=== PATIENT | female | born 1990 | race African-American/Black ===

== ENCOUNTER 2016-09-22 16:38 | Emergency (ER) | payer SELFPAY ==
--- NOTE | 2016-09-22 17:04 | ED Physician Chart ---
Chief Complaint/HPI - Patient Information Date Seen:: 09/22/16 Time Seen:: 16:58 Chief Complaint:: white vaginal discharge History of Present Illness:: THIS IS A 25 YO FEMALE WITH A WHITE VAGINAL DISCHARGE FOR SEVERAL DAYS. SHE STATES THAT SHE HAS HAD A YEAST INFECTION IN THE PAST LIKE THIS ONE. THE OVER THE COUNTER TREATMENTS HAVE NOT WORKED. THE PATIENT DENIES ALL OTHER PROBLEMS. Allergies:: Allergies Allergy/AdvReac Type Severity Reaction Status Date / Time No Known Allergies Allergy Verified 09/22/16 16:52 Vitals:: Vital Signs - 8 hr 09/22/16 16:52 Temp 97.5 F HR 81 RR 16 BP 131/82 O2 Sat % 100 Historian:: Patient Review:: Nurse's Note Reviewed Review of Systems - Review of Systems General/Constitutional: No fever, No chills, No weight loss, No weakness, No diaphoresis, No edema, No loss of appetite Skin: No skin lesions, No rash, No bruising Head: No headache, No light-headedness Eyes: No loss of vision, No pain, No diplopia ENT: No earache, No nasal drainage, No sore throat, No tinnitus Neck: No neck pain, No swelling, No thyromegaly, No stiffness, No mass noted Cardio Vascular: No chest pain, No palpitations, No PND, No orthopnea, No edema Pulmonary: No SOB, No cough, No sputum, No wheezing GI: No nausea, No vomiting, No diarrhea, No pain, No melena, No hematochezia, No constipation, No hematemesis G/U: No dysuria, No frequency, No hematuria Auto Cleaner: Vaginal discharge Musculoskeletal: No bone or joint pain, No back pain, No muscle pain Endocrine: No polyuria, No polydipsia Psychiatric: No prior psych history, No depression, No anxiety, No suicidal ideation Hematopoietic: No bruising, No lymphadenopathy Allergic/Immuno: No urticaria, No angioedema Neurological: No syncope, No focal symptoms, No weakness, No paresthesia, No headache, No seizure, No dizziness, No confusion, No vertigo Past Medical History - Past Medical History Obtainable: Yes Past Medical History: No significant medical hx Family History: None Social History: Non Smoker, No Alcohol, No Drug Use Surgical History: Psychiatricy History: None Medication: Reviewed Family Medical History - Family Member Mother History Unknown: Yes Ethnicity: Non- Living Status: Still Living Hx Family Cancer: No Hx Family Coronary Artery Disease: No Hx Family Congestive Heart Failure: No Hx Family Hypertension: Yes Hx Family Stroke: No Hx Family Diabetes: No Hx Family Seizures: No Hx Family Dementia: No Hx Family AIDS: No Hx Family HIV: No Hx Family COPD: No Hx Family Hepatitis: No Hx Family Psychiatric Problems: No Hx Family Tuberculosis: No Physical Exam - Physical Examination General/Constitutional: Awake, Well-developed, well-nourished, Alert, No distress, GCS 15, Non-toxic appearing, Ambulatory Head: Atraumatic Eyes: Lids, conjuctiva normal, PERRL, EOMI Skin: Nl inspection, No rash, No skin lesions, No ecchymosis, Well hydrated, No lymphadenopathy ENMT: External ears, nose nl, Nasal exam nl, Lips, teeth, gums nl Neck: Nontender, Full ROM w/o pain, No JVD, No nuchal rigidity, No bruit, No mass, No stridor Respiratory: Nl effort/Exclusion, Clear to Auscultation, No Wheeze/Rhonchi/Rales Cardio Vascular: RRR, No murmur, gallop, rubs, NL S1 S2 GI: No tenderness/rebounding/guarding, No organomegaly, No hernia, Normal BS's, Nondistended, No mass/bruits, No McBurney tenderness : No CVA tenderness Other comments:: THE PELVIC EXAMINE WAS DEFERRED. THERE IS NO PELVIC TENDERNESS OR DISCOMFORT. Extremities: No tenderness or effusion, Full ROM, normal strength in all extremities, No edema, Normal digits & nails Neuro/Psych: Alert/oriented, DTR's symmetric, Normal sensory exam, Normal motor strength, Judgement/insight normal, Mood normal, Normal gait, No focal deficits Misc: normal gait, Normal back, No paraspinal tenderness Assessment - Assessment General Assessment: FUNGAL VAGINITIS ED Septic Shock - . Is Septic Shock (SBP<90, OR Lactate>4 mmol\L) present?: No - <6hrs of presentation: Vital Signs: Vital Signs - 8 hr // 16:52 Temp 97.5 F HR 81 RR 16 BP 131/82 O2 Sat % 100 Reassessment (Disposition) - Reassessment Reassessment Condition:: Unchanged - Diagnosis Diagnosis:: FUNGAL VAGINITIS - Aftercare/Follow up Instructions Aftercare/Follow-Up Instructions:: Counseled pt regarding lab results/diagnosis & need follow up, Refer to Discharge Instructions, Counseled pt & family regarding lab results/diagnosis & need follow up - Patient Disposition Discharge/Transfer:: Home Condition at Disposition:: Unchanged ED Discharge Plan - Patient Disposition Admit/Discharge/Transfer: PT DISCHARGED HOME Condition at Disposition: Unchanged
== END 2016-09-22 17:05 | disposition home or self-care (01) ==
LOC: ER 16:38
DX: N76.0 Acute vaginitis (principal)
CPT/HCPCS: Z7502

== ENCOUNTER 2017-11-26 08:59 | Emergency (ER) | payer BC, MEDICARE ==
[2017-11-26 10:10] LABS: URINE SOURCE CLEAN C
[2017-11-26 10:13] LABS: URINE BILIRUBIN SMALL (NEGATIVE); URINE BLOOD MODERATE (NEGATIVE); URINE GLUCOSE (UA) NEGATIVE (NEGATIVE); URINE KETONE NEGATIVE (NEGATIVE); URINE LEUKOCYTE ESTERASE MODERATE (NEGATIVE); URINE MICROSCOPIC INDICATED? YES; URINE NITRATE NEGATIVE (NEGATIVE); URINE PROTEIN TRACE mg/dL (NEGATIVE); URINE UROBILINOGEN 0.2 E.U./dL (0.2 - 1.0)
[2017-11-26 10:21] LABS: URINE CLARITY HAZY (CLEAR); URINE COLOR YELLOW
[2017-11-26 10:23] LABS: URINE BACTERIA MODERATE /hpf (NONE SEEN); URINE EPITHELIAL CELLS MODERATE /lpf (FEW)
--- NOTE | 2017-11-26 13:09 | ED Physician Chart ---
ED Chief Complaint/HPI - Patient Information Date Seen:: 11/26/17 Time Seen:: 09:30 Chief Complaint:: vaginal discharge History of Present Illness:: 27 yr old female here with one wk hx of vag d/c greenish with itching dysuria and irritation pt has hx of yeast infections Allergies:: Allergies Allergy/AdvReac Type Severity Reaction Status Date / Time ibuprofen Allergy Verified 11/26/17 09:12 Vitals:: Vital Signs - 8 hr 11/26/17 11/26/17 09:12 11:05 Temp 98.6 F 98.2 F HR 93 84 RR 16 16 BP 150/76 132/72 O2 Sat % 98 99 ED Review of Systems - Review of Systems General/Constitutional: No fever, No chills Skin: No skin lesions Head: No headache Eyes: No loss of vision ENT: No earache Neck: No neck pain GI: No vomiting G/U: Dysuria Meat Slicer: Vaginal discharge Musculoskeletal: No bone or joint pain Endocrine: No polyuria Psychiatric: No suicidal ideation Hematopoietic: No bruising Allergic/Immuno: No urticaria ED Past Medical History - Past Medical History Past Medical History: No significant medical hx Family Medical History - Family Member Mother History Unknown: Yes Ethnicity: Non- Living Status: Still Living Hx Family Cancer: No Hx Family Coronary Artery Disease: No Hx Family Congestive Heart Failure: No Hx Family Hypertension: Yes Hx Family Stroke: No Hx Family Diabetes: No Hx Family Seizures: No Hx Family Dementia: No Hx Family AIDS: No Hx Family HIV: No Hx Family COPD: No Hx Family Hepatitis: No Hx Family Psychiatric Problems: No Hx Family Tuberculosis: No ED Physical Exam - Physical Examination General/Constitutional: Awake, Well-developed, well-nourished, Alert, No distress, GCS 15, Non-toxic appearing, Ambulatory Head: Atraumatic Eyes: Lids, conjuctiva normal, PERRL, EOMI Skin: Nl inspection, No rash, No skin lesions, No ecchymosis, Well hydrated, No lymphadenopathy ENMT: External ears, nose nl, Nasal exam nl, Lips, teeth, gums nl Neck: Nontender, Full ROM w/o pain, No JVD, No nuchal rigidity, No bruit, No mass, No stridor Respiratory: Nl effort/Exclusion, Clear to Auscultation, No Wheeze/Rhonchi/Rales Cardio Vascular: RRR, No murmur, gallop, rubs, NL S1 S2 GI: No tenderness/rebounding/guarding, No organomegaly, No hernia, Normal BS's, Nondistended, No mass/bruits, No McBurney tenderness : No CVA tenderness Extremities: No tenderness or effusion, Full ROM, normal strength in all extremities, No edema, Normal digits & nails Neuro/Psych: Alert/oriented, DTR's symmetric, Normal sensory exam, Normal motor strength, Judgement/insight normal, Mood normal, Normal gait, No focal deficits Misc: Normal back, No paraspinal tenderness ED Labs/Radiology/EKG Results - Lab Results Results: Laboratory Tests 11/26/17 11/26/17 09:15 09:15 Urine Source CLEAN C Urine Color YELLOW Urine Clarity HAZY Urine pH 6.0 Ur Specific [place] >= 1.030 Urine Protein TRACE Urine Glucose (UA) NEGATIVE Urine Ketones NEGATIVE Urine Blood MODERATE H Urine Nitrate NEGATIVE Urine Bilirubin SMALL H Urine Urobilinogen 0.2 Ur Leukocyte Esterase MODERATE H Urine RBC 5-10 H Urine WBC 10-25 H Ur Epithelial Cells MODERATE Urine Bacteria MODERATE H Urine Test NEGATIVE ED Assessment - Assessment General Assessment: vaginitis uti pelvic pain ED Septic Shock - . Is Septic Shock (SBP<90, OR Lactate>4 mmol\L) present?: No - <6hrs of presentation: Vital Signs: Vital Signs - 8 hr 11/26/17 11/26/17 09:12 11:05 Temp 98.6 F 98.2 F HR 93 84 RR 16 16 BP 150/76 132/72 O2 Sat % 98 99 ED Reassessment (Disposition) - Diagnosis Diagnosis:: vaginitis uti s/p rocephin one gm im and urine sent for gc/chlamydia - Aftercare/Follow up Instructions Aftercare/Follow-Up Instructions:: Counseled pt regarding lab results/diagnosis & need follow up Medication Prescribed:: flagyl doxy and monistat dual pack - Patient Disposition Discharge/Transfer:: Home Condition at Disposition:: Stable
== END 2017-11-26 11:15 | disposition home or self-care (01) ==
LOC: ER 08:59
DX: N76.0 Acute vaginitis (principal); N39.0 Urinary tract infection, site not specified; Z88.6 Allergy status to analgesic agent
CPT/HCPCS: 99284; 87491; 96372; 87086; 81001; 81025; J0696; Z7502

== ENCOUNTER 2017-11-30 09:20 | Emergency (ER) | payer MEDICARE ==
[2017-11-30 09:44] LABS: URINE SOURCE CLEAN C
[2017-11-30 10:14] LABS: URINE BILIRUBIN NEGATIVE (NEGATIVE); URINE BLOOD SMALL (NEGATIVE); URINE GLUCOSE (UA) NEGATIVE (NEGATIVE); URINE KETONE NEGATIVE (NEGATIVE); URINE LEUKOCYTE ESTERASE SMALL (NEGATIVE); URINE MICROSCOPIC INDICATED? YES; URINE NITRATE NEGATIVE (NEGATIVE); URINE PROTEIN NEGATIVE (NEGATIVE); URINE UROBILINOGEN 0.2 E.U./dL (0.2 - 1.0)
[2017-11-30 10:39] LABS: URINE CLARITY CLEAR (CLEAR); URINE COLOR YELLOW
[2017-11-30 10:40] LABS: URINE RBC NONE SEEN /hpf (0-5)
[2017-11-30 10:44] LABS: URINE BACTERIA OCCASIONAL /hpf (NONE SEEN); URINE EPITHELIAL CELLS OCCASIONAL /lpf (FEW); URINE WBC 0-2 /hpf (0-5)
--- NOTE | 2017-11-30 11:58 | ED Physician Chart ---
ED Chief Complaint/HPI - Patient Information Date Seen:: 11/30/17 Time Seen:: 11:23 Chief Complaint:: vaginal discharge and bumps on vulva History of Present Illness:: vaginal discharge and bumps on vulva in a woman who was seen on Sunday. She is involved in a 7 year relationship and last had unprotected sex with this man 9 to 10 days prior. She has yellow discharge and now has bumps on the outside of her vulva. On Sunday, no pelvic or vaginal exam was performed. Positive dysuria. States that her sexual partner has had no symptoms. Allergies:: Allergies Allergy/AdvReac Type Severity Reaction Status Date / Time ibuprofen Allergy Verified 11/26/17 09:12 Vitals:: Vital Signs - 8 hr 11/30/17 11:23 Temp 98.2 F HR 84 RR 16 BP 120/82 O2 Sat % 99 Historian:: Patient Review:: Nurse's Note Reviewed ED Review of Systems - Review of Systems General/Constitutional: No fever, No chills, No weight loss, No weakness, No diaphoresis, No edema, No loss of appetite Skin: No skin lesions, No rash, No bruising Head: No headache, No light-headedness Eyes: No loss of vision, No pain, No diplopia ENT: No earache, No nasal drainage, No sore throat, No tinnitus Neck: No neck pain, No swelling, No thyromegaly, No stiffness, No mass noted Cardio Vascular: No chest pain, No palpitations, No PND, No orthopnea, No edema Pulmonary: No SOB, No cough, No sputum, No wheezing GI: No nausea, No vomiting, No diarrhea, No pain, No melena, No hematochezia, No constipation, No hematemesis G/U: Dysuria Entrance Guard: Vaginal discharge Musculoskeletal: No bone or joint pain, No back pain, No muscle pain Endocrine: No polyuria, No polydipsia Psychiatric: No prior psych history, No depression, No anxiety, No suicidal ideation Hematopoietic: No bruising, No lymphadenopathy Allergic/Immuno: No urticaria, No angioedema Neurological: No syncope, No focal symptoms, No weakness, No paresthesia, No headache, No seizure, No dizziness, No confusion, No vertigo ED Past Medical History - Past Medical History Obtainable: Yes Past Medical History: No significant medical hx Family Medical History - Family Member Mother History Unknown: Yes Ethnicity: Non- Living Status: Still Living Hx Family Cancer: No Hx Family Coronary Artery Disease: No Hx Family Congestive Heart Failure: No Hx Family Hypertension: Yes Hx Family Stroke: No Hx Family Diabetes: No Hx Family Seizures: No Hx Family Dementia: No Hx Family AIDS: No Hx Family HIV: No Hx Family COPD: No Hx Family Hepatitis: No Hx Family Psychiatric Problems: No Hx Family Tuberculosis: No ED Physical Exam - Physical Examination General/Constitutional: Awake, Well-developed, well-nourished, Alert, No distress, GCS 15, Non-toxic appearing, Ambulatory Head: Atraumatic Eyes: Lids, conjuctiva normal, PERRL, EOMI Skin: Nl inspection, No rash, No skin lesions, No ecchymosis, Well hydrated, No lymphadenopathy ENMT: External ears, nose nl, Nasal exam nl, Lips, teeth, gums nl Neck: Nontender, Full ROM w/o pain, No JVD, No nuchal rigidity, No bruit, No mass, No stridor Respiratory: Nl effort/Exclusion, Clear to Auscultation, No Wheeze/Rhonchi/Rales Cardio Vascular: RRR, No murmur, gallop, rubs, NL S1 S2 GI: No tenderness/rebounding/guarding, No organomegaly, No hernia, Normal BS's, Nondistended, No mass/bruits, No McBurney tenderness : No CVA tenderness Other comments:: no vesicles present externally. positive chancre like lesions on external vulva through lips. Positiv purulent vaginal discharge in vault which was sent to vaginal culture and wet mount. G/C culture was sent on urine. Extremities: No tenderness or effusion, Full ROM, normal strength in all extremities, No edema, Normal digits & nails Neuro/Psych: Alert/oriented, DTR's symmetric, Normal sensory exam, Normal motor strength, Judgement/insight normal, Mood normal, Normal gait, No focal deficits Misc: Normal back, No paraspinal tenderness ED Labs/Radiology/EKG Results - Lab Results Results: Laboratory Tests 11/30/17 11/30/17 11/30/17 09:40 09:58 10:30 Urine Source CLEAN C Urine Color YELLOW Urine Clarity CLEAR Urine pH 6.0 Ur Specific [place] 1.020 Urine Protein NEGATIVE Urine Glucose (UA) NEGATIVE Urine Ketones NEGATIVE Urine Blood SMALL H Urine Nitrate NEGATIVE Urine Bilirubin NEGATIVE Urine Urobilinogen 0.2 Ur Leukocyte Esterase SMALL H Urine RBC NONE SEEN Urine WBC 0-2 Ur Epithelial Cells OCCASIONAL Urine Bacteria OCCASIONAL POC Ur Test Negative Epi Cells (Wet Prep) FEW Bacteria (Wet Prep) OCCASIONAL Clue Cells (Wet Prep) NONE SEEN Trichomonas (Wet Prep) NONE SEEN Vaginal WBC FEW Vaginal RBC NONE SEEN HIV 1&2 Antibody Screen Yeast (Wet Prep) NONE SEEN 11/30/17 10:35 Urine Source Urine Color Urine Clarity Urine pH Ur Specific [place] Urine Protein Urine Glucose (UA) Urine Ketones Urine Blood Urine Nitrate Urine Bilirubin Urine Urobilinogen Ur Leukocyte Esterase Urine RBC Urine WBC Ur Epithelial Cells Urine Bacteria POC Ur Test Epi Cells (Wet Prep) Bacteria (Wet Prep) Clue Cells (Wet Prep) Trichomonas (Wet Prep) Vaginal WBC Vaginal RBC HIV 1&2 Antibody Screen NEGATIVE Yeast (Wet Prep) ED Assessment - Assessment General Assessment: patient tolerated all injections well. ED Septic Shock - . Is Septic Shock (SBP<90, OR Lactate>4 mmol\L) present?: No - <6hrs of presentation: Vital Signs: Vital Signs - 8 hr 11/30/17 11:23 Temp 98.2 F HR 84 RR 16 BP 120/82 O2 Sat % 99 ED Reassessment (Disposition) - Reassessment Reassessment Condition:: Unchanged - Diagnosis Diagnosis:: Sexually transmitted disease Vulvar lesions Vaginal discharge Urinary tract infection. - Aftercare/Follow up Instructions Aftercare/Follow-Up Instructions:: Refer to Discharge Instructions Medication Prescribed:: Bactrim DS po bid; Acyclovir 400 mg po tid # 30 (do not take until results come back) no sexual activity. Patient told to have her sexual partner checked out as well. - Patient Disposition Discharge/Transfer:: Home Condition at Disposition:: Stable, Unchanged
[2017-12-04 11:10] LABS: HERPES SIMPLEX 1 AB IGG SEE REF. LAB REPORT; HERPES SIMPLEX 2 AB IGG SEE REF. LAB REPORT
[2017-12-04 15:00] LABS: HEP A AB IGM SEE REF. LAB REPORT; HEP B CORE IGM SEE REF. LAB REPORT; HEP B SURFACE AG QL SEE REF. LAB REPORT
[2017-12-04 15:01] LABS: HEP B SURFACE AG CONF. SEE REF. LAB REPORT; HEP C ANTIBODY SEE REF. LAB REPORT
== END 2017-11-30 11:57 | disposition home or self-care (01) ==
LOC: ER 09:20
DX: A64 Unspecified sexually transmitted disease (principal); N39.0 Urinary tract infection, site not specified; N90.89 Other specified noninflammatory disorders of vulva and perineum; N89.8 Other specified noninflammatory disorders of vagina; Z88.6 Allergy status to analgesic agent
CPT/HCPCS: 99284; 87491; 86592; 96372 ×2; 36415; 86694; 80074; 86703; 87070; 87210; 81001; 81025; 86695; J0561; J0696; J2001; Z7502